=== PATIENT | female | born 2000 | race Caucasian/White ===

== ENCOUNTER → 2024-01-28 16:30 | Outpatient (REF) | payer BC, SELFPAY ==
--- NOTE | 2024-01-28 16:32 | PN.DIAED06 ---
Meal Plan - Gestational
- Breakfast
Gestational Diabetes Meal Plan Name: 1800 calories
Breakfast - Total Carbohydrate (grams): 30
Breakfast - Starch Carbohydrate: 1
Breakfast - Fruit Carbohydrate: 0
Breakfast - Milk Carbohydrate: 1
Breakfast - Nonstarchy Vegetables: Yes
Breakfast - Meat/Protein: 1
Breakfast - Fat: 2
- Morning Snack
Morning Snack - Total Carbohydrate (grams): 30
Morning Snack - Starch Carbohydrate: 1
Morning Snack - Fruit Carbohydrate: 0
Morning Snack - Milk Carbohydrate: 1
Morning Snack - Nonstarchy Vegetables: Yes
Morning Snack - Meat/Protein: 0.5
Morning Snack - Fat: 0
- Lunch
Lunch - Total Carbohydrate (grams): 45
Lunch - Starch Carbohydrate: 2
Lunch - Fruit Carbohydrate: 1
Lunch - Milk Carbohydrate: 0
Lunch - Nonstarchy Vegetables: Yes
Lunch - Meat/Protein: 2
Lunch - Fat: 1
- Afternoon Snack
Afternoon Snack - Total Carbohydrate (grams): 30
Afternoon Snack - Starch Carbohydrate: 1
Afternoon Snack - Fruit Carbohydrate: 1
Afternoon Snack - Milk Carbohydrate: 0
Afternoon Snack - Nonstarchy Vegetables: Yes
Afternoon Snack - Meat/Protein: 1
Afternoon Snack - Fat: 0
- Dinner
Dinner - Total Carbohydrate (grams): 45
Dinner - Starch Carbohydrate: 2
Dinner - Fruit Carbohydrate: 0
Dinner - Milk Carbohydrate: 1
Dinner - Nonstarchy Vegetables: Yes
Dinner - Meat/Protein: 2
Dinner - Fat: 2
- Evening Snack
Evening Snack - Total Carbohydrate (grams): 30
Evening Snack - Starch Carbohydrate: 1
Evening Snack - Fruit Carbohydrate: 0
Evening Snack - Milk Carbohydrate: 1
Evening Snack - Nonstarchy Vegetables: Yes
Evening Snack - Meat/Protein: 1
Evening Snack - Fat: 1
--- NOTE | 2024-01-28 16:34 | PN.DIAED02 ---
Referral
DSME Class Series Code: 024.41
Referred For: Gestational Diabetes Self-Management Training, Management of Diabetes During , Medical Nutrition Therapy, Self-Blood Glucose Monitoring
PHI Release Authorization Form Signed: Yes
Patient Problems:
Current Active Problems
Problem Status Onset
Diabetes mellitus, gestational ~01/23/24
Demographic
(1) Diabetes mellitus, gestational
Status: Acute Onset Date: ~01/23/24
Qualifiers:
Gestational diabetes mellitus control: diet-controlled Trimester: second trimester Qualified Code(s): O24.410 - Gestational diabetes mellitus in , diet controlled
Code(s): O24.419 - Gestational diabetes mellitus in , unspecified control
Patient's primary language-: [place]
Education: College degree
Occupation: Professional
Hours Worked/Week: > 40
Shift: Day
- Social
Primary Support Person: Self
Primary Care Takers: Self, Self & spouse
Living Arrangements: Self & spouse
Care Plan
- Education Needs
Patient Education Needs: Monitoring, Nutritional management, Preconception care//gestational diabetes management
- Plan of Care
Plan of Care:
Met with Ms. Matthew today, , here today for glucometer and nutritional instructions. Explained glucose metabolism in body and what occurs during to cause increase blood sugar. Discussed importance of keeping BS well controlled to
avoid complications to the baby during and after (macrosomia, hypoglycemia). Explained to Bonifacio that she is at increased risk of developing T2DM in the future. Provider her with Contour Next Ez glucometer, instructions given on proper testing
technique, testing sites and testing pattern given. She is aware to test FBS and 2 hr pp each meal. Expected results for FBS <95 mg/dl and 2 hr pp <120 mg/dl. She is aware if testing 1 hr pp, result should be <140 mg/dl. Log sheet provided for her
to record results, she will send to Cl[facility] at [facility] every Friday. Result today of 90 mg/dl 2 hrs after her lunch. Explained macronutrients and the effect each has on blood sugar. Provided with 1800 jorge luis GDM meal plan. She was educated on
how to read a nutritional fact label and look at total CHO in relation to serving size. No fruit or fruit juice until noontime. Provided with handout on snacks as well as 'Choose Your Foods' booklet. She has a good understanding of nutrition. She
was encouraged to keep a regular activity schedule and will reach out should she require insulin.
== END ==
LOC: DES 16:30
PROVIDERS: ATTENDING PHYSICIAN Obstetrics & Gynecology
DX: O24.419 Gestational diabetes mellitus in pregnancy, unspecified control (principal)
CPT/HCPCS: 99078

== ENCOUNTER → 2024-01-29 13:15 | Outpatient (REF) | payer BC, SELFPAY | LOC: PNTC 13:15 | PROVIDERS: ATTENDING PHYSICIAN Obstetrics & Gynecology | DX: O99.210 Obesity complicating pregnancy, unspecified trimester (principal); O35.5XX0 Maternal care for (suspected) damage to fetus by drugs, not applicable or unspecified | CPT/HCPCS: 76805 ==

== ENCOUNTER → 2024-02-09 16:30 | Outpatient (REF) | payer BC, SELFPAY ==
--- NOTE | 2024-02-09 15:44 | PN.DE.MGMTRT ---
Insulin Management
- -
Met with Carlie today [facility]C 04/04/24, for insulin instructions. Her fasting glucose levels have been 98 to 118mg/dl, and 92-135mg/dl 1-2 hrs after meals. Pt has been recommended to start Basal insulin Lantus 6 units @ HS per her Perinatologist
Oliver. Discussed action of long acting insulins as well as symptoms and treatment of hypoglycemia. She is aware to inject insulin in outer thigh, rotating sites and aware to store insulin pens that are not in use in the refrigerator. Instructions
with good return demonstration using the insulin pen were noted. Discussed importance of checking fasting blood sugar to know the effect of the basal insulin on her blood sugars overnight. She has been consistent with monitoring 2 hrs after each
meal. Stressed the importance of ongoing monitoring fasting/before breakfast and 2 hrs after each meal to know the effect of food on her blood sugars.
Pt verbalized understanding.
Diabetes History
- -
Type of Diabetes: Gestational
Pre-Admission Diabetes Regimen
Insulin Pump Settings
IP Diabetes Regimen
Patient Education
== END ==
LOC: DES 16:30
PROVIDERS: ATTENDING PHYSICIAN Obstetrics & Gynecology Maternal & Fetal Medicine
DX: O24.419 Gestational diabetes mellitus in pregnancy, unspecified control (principal)
CPT/HCPCS: 99078

== ENCOUNTER → 2024-02-23 08:46 | Outpatient (REF) | payer BC, SELFPAY | LOC: PNTC 08:46 | PROVIDERS: ATTENDING PHYSICIAN Obstetrics & Gynecology | DX: O99.210 Obesity complicating pregnancy, unspecified trimester (principal); O35.5XX0 Maternal care for (suspected) damage to fetus by drugs, not applicable or unspecified | CPT/HCPCS: 76811 ==

== ENCOUNTER → 2024-03-22 08:22 | Outpatient (REF) | payer BC, SELFPAY | LOC: PNTC 08:22 | PROVIDERS: ATTENDING PHYSICIAN Advanced Practice Midwife | DX: E10.9 Type 1 diabetes mellitus without complications (principal); O99.612 Diseases of the digestive system complicating pregnancy, second trimester | CPT/HCPCS: 76816 ==

== ENCOUNTER → 2024-04-20 13:17 | Outpatient (REF) | payer BC, SELFPAY | LOC: PNTC 13:17 | PROVIDERS: ATTENDING PHYSICIAN Advanced Practice Midwife | DX: O24.419 Gestational diabetes mellitus in pregnancy, unspecified control (principal); O99.612 Diseases of the digestive system complicating pregnancy, second trimester | CPT/HCPCS: 76816 ==

== ENCOUNTER → 2024-05-17 10:19 | Outpatient (REF) | payer BC, SELFPAY | LOC: PNTC 10:19 | PROVIDERS: ATTENDING PHYSICIAN Obstetrics & Gynecology | DX: O99.210 Obesity complicating pregnancy, unspecified trimester (principal); O99.280 Endocrine, nutritional and metabolic diseases complicating pregnancy, unspecified trimester | CPT/HCPCS: 59025; 76816 ==

== ENCOUNTER → 2024-05-31 10:19 | Outpatient (REF) | payer BC, SELFPAY | LOC: PNTC 10:19 | PROVIDERS: ATTENDING PHYSICIAN Obstetrics & Gynecology | DX: O99.210 Obesity complicating pregnancy, unspecified trimester (principal); O35.5XX0 Maternal care for (suspected) damage to fetus by drugs, not applicable or unspecified | CPT/HCPCS: 59025; 76815 ==

== ENCOUNTER → 2024-06-07 10:18 | Outpatient (REF) | payer BC, SELFPAY | LOC: PNTC 10:18 | PROVIDERS: ATTENDING PHYSICIAN Obstetrics & Gynecology | DX: O99.210 Obesity complicating pregnancy, unspecified trimester (principal); O99.320 Drug use complicating pregnancy, unspecified trimester | CPT/HCPCS: 59025; 76815 ==

== ENCOUNTER → 2024-06-14 10:17 | Outpatient (REF) | payer BC, SELFPAY | LOC: PNTC 10:17 | PROVIDERS: ATTENDING PHYSICIAN Obstetrics & Gynecology | DX: O99.210 Obesity complicating pregnancy, unspecified trimester (principal); O99.320 Drug use complicating pregnancy, unspecified trimester | CPT/HCPCS: 59025; 76816 ==

== ENCOUNTER → 2024-06-21 10:17 | Outpatient (REF) | payer BC, SELFPAY | LOC: PNTC 10:17 | PROVIDERS: ATTENDING PHYSICIAN Obstetrics & Gynecology | DX: O99.210 Obesity complicating pregnancy, unspecified trimester (principal); O35.5XX0 Maternal care for (suspected) damage to fetus by drugs, not applicable or unspecified | CPT/HCPCS: 59025; 76815 ==

== ENCOUNTER → 2024-06-24 07:23 | Outpatient (REF) | payer BC, SELFPAY | LOC: RAD 07:23 | PROVIDERS: ATTENDING PHYSICIAN Obstetrics & Gynecology; FAMILY PHYSICIAN Nurse Practitioner Adult Health | DX: R31.9 Hematuria, unspecified (principal) | CPT/HCPCS: 76770 ==

== ENCOUNTER → 2024-06-28 10:16 | Outpatient (REF) | payer BC, SELFPAY | LOC: PNTC 10:16 | PROVIDERS: ATTENDING PHYSICIAN Obstetrics & Gynecology | DX: O99.210 Obesity complicating pregnancy, unspecified trimester (principal); O99.320 Drug use complicating pregnancy, unspecified trimester | CPT/HCPCS: 59025; 76816 ==

== ENCOUNTER 2024-07-01 19:55 | Inpatient (IN) | payer BC, SELFPAY ==
[2024-07-01 20:48] VITALS: BMI 46.4
[2024-07-01 20:53] VITALS: BP 129/71
[2024-07-01 21:14] LABS: % Basophils 0.4 % (0-2); % Immature Granulocytes 0.3 % (0-0.5); % Lymphocytes 23.9 % (20.5-51.1); % Monocytes 10.1 % (1.7-9.3); % Neutrophils 64.3 % (42.2-75.2); Absolute Basophils 0.1 10^3/uL (0-0.2); Absolute Eosinophils 0.1 10^3/uL (0-0.7); Absolute Lymphocytes 3.2 10^3/uL (1.2-3.4); Absolute Monocytes 1.4 10^3/uL (0.1-0.6); Absolute Neutrophils 8.7 10^3/uL (1.4-6.5); Hemoglobin 11.1 g/dL (12.0-16.0); Mean Corp Hgb Conc. 34.7 g/dL (33.0-37.0); Mean Corpuscular Hgb 28.1 pg (27.0-31.0); Mean Platelet Volume 11.2 fL (7.4-10.4); Nucleated Red Blood Cells % 0 %; Platelet Count 233 10^3/uL (130-400); Red Blood Cell Count 3.95 10^6/uL (4.20-5.40); Red Cell Dist. Width 13.5 % (11.5-14.5); White Blood Cell Count 13.5 10^3/uL (4.8-10.8)
[2024-07-01 21:19] LABS: Glucose - Point of Care 99 mg/dl (70-99)
[2024-07-01] MEDS: CYTOTEC 25 MICROGRAM VAG (21:36)
[2024-07-02] MEDS: CYTOTEC 50 MICROGRAM PO ×3 (00:54→09:05)
[2024-07-02 01:01] LABS: Glucose - Point of Care 89 mg/dl (70-99)
[2024-07-02 05:01] LABS: Glucose - Point of Care 75 mg/dl (70-99)
[2024-07-02] MEDS: LUVOX 50 MG PO ×2 (08:07→21:56)
[2024-07-02 09:13] LABS: Glucose - Point of Care 101 mg/dl (70-99)
[2024-07-02] MEDS: PITOCIN 30 UNITS/NSS 500 ML IV (13:30)
[2024-07-02 13:42] LABS: Glucose - Point of Care 158 mg/dl (70-99)
[2024-07-02] MEDS: CYTOTEC PO ×2 (13:46→17:06)
[2024-07-02 17:08] LABS: Glucose - Point of Care 98 mg/dl (70-99)
[2024-07-02] MEDS: FENTANYL/BUPIVACAINE 100 EPIDURAL (19:27)
[2024-07-02] MEDS: SUBLIMAZE 100 MCG EPIDURAL (19:29)
[2024-07-02 21:37] LABS: Glucose - Point of Care 90 mg/dl (70-99)
[2024-07-02 23:34] LABS: Glucose - Point of Care 82 mg/dl (70-99)
[2024-07-03 02:18] LABS: Glucose - Point of Care 121 mg/dl (70-99)
[2024-07-03] MEDS: FENTANYL/BUPIVACAINE 100 EPIDURAL (02:31)
[2024-07-03 04:30] LABS: Glucose - Point of Care 112 mg/dl (70-99)
[2024-07-03 07:20] LABS: Glucose - Point of Care 112 mg/dl (70-99)
[2024-07-03] MEDS: BICITRA 30 ML PO (07:22)
[2024-07-03] MEDS: TYLENOL 1000 MG PO (07:22)
[2024-07-03] MEDS: CLEOCIN 50 IV (07:22)
[2024-07-03] MEDS: ZITHROMAX INFUSION 250 IV (07:38)
[2024-07-03] MEDS: GENTAMICIN 110 MG IV (07:46)
[2024-07-03 08:19] LABS: B.E. Cord ABG -5.5 mMOL/L; Cord ABG Comment CORD BLOOD; HCO3 Cord ABG 22.4 mmol/L; O2 Saturation % Cord ABG 43.3 %; PCO2 Cord ABG 51 mmHg; PO2 Cord ABG 23 mmHg; pH Cord ABG 7.25
[2024-07-03 09:05] VITALS: BP 129/71
[2024-07-03 09:18] LABS: Glucose - Point of Care 126 mg/dl (70-99)
[2024-07-03] MEDS: DILAUDID 0.5 MG IV ×2 (09:21→09:41)
[2024-07-03 09:30] VITALS: BP 133/76
[2024-07-03 09:45] VITALS: BP 125/67
[2024-07-03] MEDS: TORADOL 15 MG IV ×3 (10:24→22:06)
[2024-07-03] MEDS: PITOCIN 30 UNITS/NSS 500 ML IV (10:24)
[2024-07-03] MEDS: LUVOX 50 MG PO ×2 (13:36→22:06)
[2024-07-04] MEDS: TORADOL 15 MG IV ×3 (04:39→15:56)
[2024-07-04 06:07] LABS: Hematocrit 25.9 % (37.0-47.0); Hemoglobin 8.7 g/dL (12.0-16.0); Mean Corp Hgb Conc. 33.6 g/dL (33.0-37.0); Mean Corpuscular Volume 86.3 fL (81.0-99.0); Mean Platelet Volume 11.7 fL (7.4-10.4); Platelet Count 234 10^3/uL (130-400); White Blood Cell Count 24.5 10^3/uL (4.8-10.8)
[2024-07-04] MEDS: FEOSOL 325 MG PO ×2 (08:12→20:20)
[2024-07-04] MEDS: PRENATAL PLUS 1 TABLET PO (08:12)
[2024-07-04] MEDS: LUVOX 50 MG PO ×2 (08:12→20:20)
--- NOTE | 2024-07-04 09:02 | W.PN.ANS.POP ---
Anesthesia Post Operative
- Anesthesia Post Op Note
Vital Signs Stable-See Nursing Note: Yes
Airway Patent: Yes
Adequate Pain Control: Yes
Change in Mental Status: No
Current Postoperative Nausea & Vomiting: No
Anesthesia Complications: No
General Anesthetic Recall: No
Unplanned Admission: No
Post Op Hydration Adequate: Yes
[2024-07-04] MEDS: MOTRIN 600 MG PO (22:15)
[2024-07-04] MEDS: TYLENOL 650 MG PO (22:16)
[2024-07-05] MEDS: TYLENOL 650 MG PO ×3 (06:28→20:01)
[2024-07-05] MEDS: MOTRIN 600 MG PO ×3 (06:29→20:01)
[2024-07-05] MEDS: PRENATAL PLUS 1 TABLET PO (07:53)
[2024-07-05] MEDS: FEOSOL 325 MG PO ×2 (07:54→19:59)
[2024-07-05] MEDS: LUVOX 50 MG PO ×2 (07:54→19:59)
[2024-07-05] MEDS: SENOKOT-S 1 TABLET PO (08:00)
[2024-07-06] MEDS: MOTRIN 600 MG PO (01:55)
[2024-07-06] MEDS: TYLENOL 650 MG PO (01:55)
[2024-07-06] MEDS: SENOKOT-S 1 TABLET PO (08:00)
[2024-07-06] MEDS: FEOSOL 325 MG PO (08:00)
[2024-07-06] MEDS: LUVOX 50 MG PO (08:00)
[2024-07-06] MEDS: PRENATAL PLUS 1 TABLET PO (08:00)
[2024-07-06 13:58] LABS: Syphilis/T. pallidum Ab Reflex Negative (Negative)
== END 2024-07-06 11:17 | disposition home or self-care (01) | DRG 787 ==
LOC: LDRP 19:55
PROVIDERS: Obstetrics & Gynecology; ADMITTING PHYSICIAN Obstetrics & Gynecology
PROC: 3E0P7VZ Introduction of Hormone into Female Reproductive, Via Natural or Artificial Opening (ICD-10-PCS; 2024-07-01)
PROC: 3E033VJ Introduction of Other Hormone into Peripheral Vein, Percutaneous Approach (ICD-10-PCS; 2024-07-02)
PROC: 10H07YZ Insertion of Other Device into Products of Conception, Via Natural or Artificial Opening (ICD-10-PCS; 2024-07-02)
PROC: 10907ZC Drainage of Amniotic Fluid, Therapeutic from Products of Conception, Via Natural or Artificial Opening (ICD-10-PCS; 2024-07-02)
PROC: 6A550ZT Pheresis of Cord Blood Stem Cells, Single (ICD-10-PCS; 2024-07-03)
PROC: 10D00Z1 Extraction of Products of Conception, Low, Open Approach (ICD-10-PCS; 2024-07-03)
DX: O24.424 Gestational diabetes mellitus in childbirth, insulin controlled (principal); K50.90 Crohn's disease, unspecified, without complications; Z3A.39 39 weeks gestation of pregnancy; Z37.0 Single live birth; O62.1 Secondary uterine inertia; O99.62 Diseases of the digestive system complicating childbirth; O99.344 Other mental disorders complicating childbirth; F41.9 Anxiety disorder, unspecified; O90.81 Anemia of the puerperium; O67.8 Other intrapartum hemorrhage; D64.9 Anemia, unspecified; O71.81 Laceration of uterus, not elsewhere classified; O69.81X0 Labor and delivery complicated by cord around neck, without compression, not applicable or unspecified; F32.A Depression, unspecified; F42.9 Obsessive-compulsive disorder, unspecified; O99.214 Obesity complicating childbirth; E66.01 Morbid (severe) obesity due to excess calories; Z80.8 Family history of malignant neoplasm of other organs or systems; Z80.0 Family history of malignant neoplasm of digestive organs; Z88.1 Allergy status to other antibiotic agents; Z88.0 Allergy status to penicillin; Z88.7 Allergy status to serum and vaccine
CPT/HCPCS: 88307; 36415; 82803; 82962; 85025; 85027; 86780; 86850; 86900; 86901; 87086

== ENCOUNTER → 2024-09-13 07:25 | Outpatient (REF) | payer BC, SELFPAY | LOC: RAD 07:25 | PROVIDERS: ATTENDING PHYSICIAN Nurse Practitioner Adult Health | DX: K80.20 Calculus of gallbladder without cholecystitis without obstruction (principal) | CPT/HCPCS: 76700 ==

== ENCOUNTER → 2024-10-04 19:27 | Outpatient (REF) | payer BC, SELFPAY | LOC: MRI 19:27 | PROVIDERS: ATTENDING PHYSICIAN Nurse Practitioner Adult Health | DX: K76.9 Liver disease, unspecified (principal) | CPT/HCPCS: 74183; A9575 ==

== ENCOUNTER 2025-01-11 08:44 | Emergency (ER) | payer BC, SELFPAY ==
[2025-01-11 09:01] VITALS: BP 130/88
[2025-01-11 09:30] LABS: Urine Albumin Negative (Neg - Trace); Urine Bilirubin Negative (Negative); Urine Character Clear (Clear); Urine Color Yellow; Urine Glucose Negative (Negative); Urine Ketone Negative (Negative); Urine Leukocyte Negative (Negative); Urine Nitrite Negative (Negative); Urine Occult Blood Negative (Negative); Urine Urobilinogen Negative (Neg - 1+)
[2025-01-11 09:35] LABS: % Basophils 0.5 % (0-2); % Immature Granulocytes 0.7 % (0-0.5); % Lymphocytes 15.2 % (20.5-51.1); % Monocytes 6.9 % (1.7-9.3); % Neutrophils 75.7 % (42.2-75.2); Absolute Basophils 0.1 10^3/uL (0-0.2); Absolute Eosinophils 0.2 10^3/uL (0-0.7); Absolute Immature Granulocytes 0.2 10^3/uL (0-0.05); Absolute Lymphocytes 3.7 10^3/uL (1.2-3.4); Absolute Monocytes 1.7 10^3/uL (0.1-0.6); Absolute Neutrophils 18.4 10^3/uL (1.4-6.5); Hematocrit 42.1 % (37.0-47.0); Hemoglobin 14.4 g/dL (12.0-16.0); Mean Corp Hgb Conc. 34.2 g/dL (33.0-37.0); Mean Corpuscular Hgb 28.9 pg (27.0-31.0); Mean Corpuscular Volume 84.5 fL (81.0-99.0); Mean Platelet Volume 9.6 fL (7.4-10.4); Nucleated Red Blood Cells % 0 %; Platelet Count 291 10^3/uL (130-400); Red Blood Cell Count 4.98 10^6/uL (4.20-5.40); Red Cell Dist. Width 12.9 % (11.5-14.5); White Blood Cell Count 24.3 10^3/uL (4.8-10.8)
[2025-01-11 09:40] LABS: HCG, Serum Qualitative Screen Negative
[2025-01-11 09:44] LABS: ALT (SGPT) 38 U/L (0-35); AST (SGOT) 31 U/L (14-36); Albumin 4.6 g/dl (3.5-5.0); Alkaline Phosphatase 68 U/L (38-126); Blood Urea Nitrogen 19 mg/dl (7-17); Calcium 10.1 mg/dl (8.4-10.2); Carbon Dioxide 21 mmol/L (22-30); Chloride 105 mmol/L (98-107); Glucose 111 mg/dl (70-99); Lipase 174 U/L (23-300); Potassium 4.3 mmol/L (3.5-5.1); Sodium 137 mmol/L (135-145); Total Bilirubin 0.5 mg/dl (0.2-1.3); Total Protein 7.4 g/dl (6.3-8.2); eGFR > 60.00
--- NOTE | 2025-01-11 09:44 | ED.GENMED ---
History of Present Illness
<Shira Jean PA-C - Last Filed: 01/11/25 18:48>
General
Chief Complaint: Abdominal Pain
Source: patient
Exam Limitations: none
Time Seen by Provider: 01/11/25 09:33
History of Present Illness
History of Present Illness:
24yoF with a history of Crohn's disease (on Humira, in remission x 4 years) presenting with her father for evaluation of abdominal pain. Patient woke up around 3 AM with pain in her left upper quadrant. She went back to bed but woke up again at 5
AM with pain that radiated across her upper abdomen. The pain is described as a gnawing, pulling pain. Pain is worse with movement. She also reports chills but denies any fevers. She has a prior diagnosis of gallstones although she denies any
pain in her right upper quadrant. Symptoms do not feel like her prior Crohn's flares because she has no issues with bowel movements. She had a pork rice bowl for dinner last night. She denies any nausea, vomiting, diarrhea, constipation, urinary
symptoms. Previous abdominal surgeries include a section in June 2024.
Past History
<Shira Jean PA-C - Last Filed: 01/11/25 18:48>
Past History
ED Past Medical History: Other (Crohn's disease)
ED Past Surgical History: None
Social History
Tobacco: Non-smoker
Alcohol: None
Drug: None
Personal: Single
Living: with family
Phy Exam
<Shira Jean PA-C - Last Filed: 01/11/25 18:48>
General Physical Exam
General Presentation: well appearing and no apparent distress
General age: appears stated age
General Skin: warm and dry
General Habitus: normal
General Mental: alert
ENT Exam
ENT Exam: normocephalic
Cardiovascular Exam
Cardiovascular Exam: no murmur and tachycardia
Pulmonary Exam
Pulmonary Exam: lungs clear, no respiratory distress, no rales, no crackles and no rhonchi
Gastrointestinal Exam
Gastrointestinal Exam: soft, non distended and other (+Generalized abdominal tenderness, worse in the suprapubic and LLQ regions. Abdomen soft, non-distended. No rebound or guarding. Negative Jon's sign.)
Neurological Exam
Neurological Exam: alert
Roger Coma Scale
Eye Opening: Spontaneous
Verbal Response: Oriented
Motor Response: Obeys Commands
GCS Total Score: 15
Skin Exam
Skin Exam: normal color and warm/dry
Psychiatric Exam
Psychiatric Exam: normal mood/affect
<Ying Patton NP - Last Filed: 01/11/25 19:19>
Roger Coma Scale
GCS Total Score: 15
Course
<Shira Jean PA-C - Last Filed: 01/11/25 18:48>
Orders/Labs/Results
Orders:
Orders
01/11/25 09:06
Electrocardiogram (*1) Urgent
Reason for Study: Chest Pain
01/11/25 09:07
EKG- Treatment ONCE
Test Result ONCE
01/11/25 09:15
Complete Blood Count/With Diff Urgent
Comprehensive Metabolic Panel Urgent
HCG, Serum Qualitative Screen Urgent
Comment: Notify provider if positive test present
Lipase Urgent
01/11/25 09:17
Urinalysis Reflex To Culture Urgent
Date Specimen was Collected: 01/11/25
Time Specimen was Collected: 09:07
01/11/25 09:43
CT Abd/pelvis W Iv Cont Urgent
Comment:
Reason For Exam: L sided, periumbilical pain
0.9% Sodium Chloride 1000 ml [Nss] 1,000 ml IV BOLUS
Ketorolac [Toradol] 15 mg IV NOW STA
01/11/25 10:06
Ketorolac [Toradol] 15 mg IV NOW STA
01/11/25 10:07
Ketorolac [Toradol] 15 mg .ROUTE .STK-MED ONE
01/11/25 12:32
Iohexol [Omnipaque] See Protocol PO NOW STA
01/11/25 12:42
CT Abd/pel (oral only)-DH Only Urgent
Comment:
Reason For Exam: generalized abd pain
Iohexol [Omnipaque] See Protocol PO NOW STA
01/11/25 12:49
Ondansetron HCl [Zofran] 4 mg PO NOW STA
01/11/25 12:50
Ondansetron Injectable [Zofran] 4 mg .ROUTE .STK-MED ONE
Abnormal Lab Results
01/11/25
09:15
WBC 24.3 H 10^3/uL
(4.8-10.8)
Abs Immat Gran (auto) 0.2 H 10^3/uL
(0-0.05)
Absolute Neuts (auto) 18.4 H 10^3/uL
(1.4-6.5)
Absolute Lymphs (auto) 3.7 H 10^3/uL
(1.2-3.4)
Absolute Monos (auto) 1.7 H 10^3/uL
(0.1-0.6)
Immature Gran % 0.7 H %
(0-0.5)
Neutrophils % 75.7 H %
(42.2-75.2)
Lymphocytes % 15.2 L %
(20.5-51.1)
Carbon Dioxide 21 L mmol/L
(22-30)
BUN 19 H mg/dl
(7-17)
Glucose 111 H mg/dl
(70-99)
ALT 38 H U/L
(0-35)
01/11/25 09:15
01/11/25 09:15
Vital Signs
Initial and Last Documented VS:
Initial Vital Signs
Temp Pulse Resp BP Pulse Ox
99.9 F 130 20 130/88 98
01/11/25 09:01 01/11/25 09:01 01/11/25 09:01 01/11/25 09:01 01/11/25 09:01
Last Documented Vital Signs
Temp Pulse Resp BP Pulse Ox
98.1 F 104 20 155/105 96
01/11/25 17:35 01/11/25 19:04 01/11/25 10:12 01/11/25 19:04 01/11/25 19:04
<Ying Patton, SYNTHET[employer] ST[employer]LE EXTRUDER - Last Filed: 01/11/25 19:19>
Orders/Labs/Results
Orders:
Orders
01/11/25 09:06
Electrocardiogram (*1) Urgent
Reason for Study: Chest Pain
01/11/25 09:07
EKG- Treatment ONCE
Test Result ONCE
01/11/25 09:15
Complete Blood Count/With Diff Urgent
Comprehensive Metabolic Panel Urgent
HCG, Serum Qualitative Screen Urgent
Comment: Notify provider if positive test present
Lipase Urgent
01/11/25 09:17
Urinalysis Reflex To Culture Urgent
Date Specimen was Collected: 01/11/25
Time Specimen was Collected: 09:07
01/11/25 09:43
CT Abd/pelvis W Iv Cont Urgent
Comment:
Reason For Exam: L sided, periumbilical pain
0.9% Sodium Chloride 1000 ml [Nss] 1,000 ml IV BOLUS
Ketorolac [Toradol] 15 mg IV NOW STA
01/11/25 10:06
Ketorolac [Toradol] 15 mg IV NOW STA
01/11/25 10:07
Ketorolac [Toradol] 15 mg .ROUTE .STK-MED ONE
01/11/25 12:32
Iohexol [Omnipaque] See Protocol PO NOW STA
01/11/25 12:42
CT Abd/pel (oral only)-DH Only Urgent
Comment:
Reason For Exam: generalized abd pain
Iohexol [Omnipaque] See Protocol PO NOW STA
01/11/25 12:49
Ondansetron HCl [Zofran] 4 mg PO NOW STA
01/11/25 12:50
Ondansetron Injectable [Zofran] 4 mg .ROUTE .STK-MED ONE
Abnormal Lab Results
01/11/25
09:15
WBC 24.3 H 10^3/uL
(4.8-10.8)
Abs Immat Gran (auto) 0.2 H 10^3/uL
(0-0.05)
Absolute Neuts (auto) 18.4 H 10^3/uL
(1.4-6.5)
Absolute Lymphs (auto) 3.7 H 10^3/uL
(1.2-3.4)
Absolute Monos (auto) 1.7 H 10^3/uL
(0.1-0.6)
Immature Gran % 0.7 H %
(0-0.5)
Neutrophils % 75.7 H %
(42.2-75.2)
Lymphocytes % 15.2 L %
(20.5-51.1)
Carbon Dioxide 21 L mmol/L
(22-30)
BUN 19 H mg/dl
(7-17)
Glucose 111 H mg/dl
(70-99)
ALT 38 H U/L
(0-35)
01/11/25 09:15
01/11/25 09:15
Vital Signs
Initial and Last Documented VS:
Initial Vital Signs
Temp Pulse Resp BP Pulse Ox
99.9 F 130 20 130/88 98
01/11/25 09:01 01/11/25 09:01 01/11/25 09:01 01/11/25 09:01 01/11/25 09:01
Last Documented Vital Signs
Temp Pulse Resp BP Pulse Ox
98.1 F 104 20 155/105 96
01/11/25 17:35 01/11/25 19:04 01/11/25 10:12 01/11/25 19:04 01/11/25 19:04
Moiséslt;Shira Jean PA-C - Last Filed: 01/11/25 18:48>
MDM/Problems Addressed
Differential Diagnosis Includes:
24yoF here with abd pain. Woke up at 3am with LUQ pain. Pain now radiating to center abdomen. Feels like a pulling, gnawing pain. +Chills, denies fevers. Hx of Crohn's disease in remission. Temp 99.9 in triage. Repeat temp 98.4 on initial exam. HR
130. She is well appearing in no distress. Differential diagnosis includes but is not limited to: gastritis, PUD, pancreatitis, colitis, diverticulitis, cholecystitis
Initial ED plan: Check abdominal labs, HCG, UA, and CT abdomen. IV Toradol and fluid bolus for symptoms.
Final assessment: Labs reveal a leukocytosis with a white count of 24.3. White count was also 24 in June of last year when she was giving . Remainder of labs overall unremarkable. hCG negative. UA bland without signs of infection. CT
shows hepatomegaly with a 2.3 cm enhancing lesion which was also seen on prior MRI. No other acute findings seen on CT although evaluation for bowel pathology limited due to lack of enteric contrast. Appendix not definitively visualized.
Discussed findings with patient. We discussed options of obtaining repeat CT with p.o. contrast vs. discharging with watchful waiting and strict return precautions. Patient prefers to repeat CT scan which was ordered. Patient is feeling better
after Toradol on multiple reassessments. Case was signed out to Mariola Patton pending repeat CT.
<Ying Patton, SYNTHETIC ST[employer]LE EXTRUDER - Last Filed: 01/11/25 19:19>
MDM/Problems Addressed
Differential Diagnosis Includes:
24yoF here with abd pain. Woke up at 3am with LUQ pain. Pain now radiating to center abdomen. Feels like a pulling, gnawing pain. +Chills, denies fevers. Hx of Crohn's disease in remission. Temp 99.9 in triage. Repeat temp 98.4 on initial exam. HR
130. She is well appearing in no distress. Differential diagnosis includes but is not limited to: gastritis, PUD, pancreatitis, colitis, diverticulitis, cholecystitis
Initial ED plan: Check abdominal labs, HCG, UA, and CT abdomen. IV Toradol and fluid bolus for symptoms.
Final assessment: Labs reveal a leukocytosis with a white count of 24.3. White count was also 24 in June of last year when she was giving . Remainder of labs overall unremarkable. hCG negative. UA bland without signs of infection. CT
shows hepatomegaly with a 2.3 cm enhancing lesion which was also seen on prior MRI. No other acute findings seen on CT although evaluation for bowel pathology limited due to lack of enteric contrast. Appendix not definitively visualized.
Discussed findings with patient. We discussed options of obtaining repeat CT with p.o. contrast vs. discharging with watchful waiting and strict return precautions. Patient prefers to repeat CT scan which was ordered. Patient is feeling better
after Toradol on multiple reassessments. Case was signed out to Mariola Patton pending repeat CT.
6:20 [address]
#2 CT abd/pelvis with po and after IV only contrast CT radiology report read:
IMPRESSION: Moderate wall thickening involving the distal 10 cm of the ileum, compatible with ileitis. Given the clinical history, this is most likely Crohn's disease. Infectious ileitis is a differential consideration.
No evidence for bowel obstruction. No evidence for free intraperitoneal air.
Hepatomegaly with fatty infiltration liver.
2 cm lesion within the inferior right lobe of the liver, as seen on MRI of the abdomen of October 04, 2024. Follow-up MRI of the abdomen is advised with utilization of Eovist contrast agent (pt has been aware of this)
Recommended admission for GI evaluation. She does not want to stay as she has an infant at home
Pt states she is pain free. She is aware of her elevated WBC, reviewed CT results with her, she looks comfortable, is afebrile. VSS HR 94
She will call her GI doctor at [facility] tomorrow.
Provided stool sample container to take home, she will get order for stool cultures from her [facility] doctor
Strict return instructions reviewed
<Shira Jean PA-C - Last Filed: 01/11/25 18:48>
*EKG
Interpreted by ED Provider?: Yes
EKG Intrepretation Date: 01/11/25
Heart Rate: 110
Rate: tachycardiac
Rhythm: sinus
[place]: normal axis
Interval: normal interval
QRS Pattern: normal QRS
Ischemia: no ischemia
*Critical Care Note
Total Time (30-74mins, 75-104mins- exclusive of procedures): Not Applicable
ED Attending Note
<Shira Jean PA-C - Last Filed: 01/11/25 18:48>
-
Portions of this chart may have been created with voice recognition software.� Occasional wrong word or��sound alike� substitutions may have occurred due to the inherent limitations of voice recognition software.
Discharge Plan
Departure
Patient Disposition: Home (Routine Discharge)
Date of Disposition: 01/11/25
Time of Disposition: 18:38
Patient with high blood pressure during this ER visit?: No
Condition: Good
Discharge Problem:
Ileitis
Instructions: Inflammatory Bowel Disease (DC)
Prescriptions:
No Action
fluvoxamine 50 MG tablet
50 mg PO BID
Humira Pen 40 mg/0.8 mL Pen Injector Kit
40 mg SC WEEKLY
Vitamin
1 tab PO DAILY
acetaminophen 325 mg Tablet
650 mg PO Q4HPRN PRN (Reason: mild pain) Qty: 0 0RF
sennosides-docusate sodium 8.6-50 mg Tablet
1 tab PO DAILYPRN PRN (Reason: constipation) Qty: 0 0RF
ferrous sulfate [FeroSul] 325 mg (65 mg iron) Tablet
325 mg PO DAILY Qty: 30 0RF
ibuprofen 600 mg Tablet
600 mg PO Q6HPRN PRN (Reason: cramps) Qty: 60 0RF
Referrals:
[facility] [Other] - Tomorrow
Isabel Magana CRNP [Family Provider] -
Activity Restrictions/Additional Instructions:
As we discussed, the inflammation of your bowel may be infectious or inflammatory of Crohn's.
Collect a stool sample and notify your GI doctor at [facility] tomorrow of today's visit, ask if he wants to order a stool culture.
Clear liquid diet until further instructed by your GI doctor.
Drink plenty of fluids.
Return here immediately for worsening abdominal pain, fever above 100.5, vomiting more than once in one hour, bloody stools or feeling sicker in any way
Interventions
Interventions:
*Risk Screen - Suicide Last Done: 01/11/25 09:01
*General Assessment Last Done: 01/11/25 09:01
*Neglect/Abuse Screening Last Done: 01/11/25 09:01
ED- Fall Risk Assessment Last Done: 01/11/25 10:13
*ED COVID-19 Vaccine History Last Done: 01/11/25 19:04
*Nursing Disposition Last Done: 01/11/25 19:04
LS-Boykfh-Lgtfruvxin Assessment Last Done: 01/11/25 10:13
Discharge Date and Time
Print Language: BULGARIAN
[2025-01-11] MEDS: TORADOL 15 MG IV ×2 (09:45→10:11)
[2025-01-11 10:05] VITALS: BP 158/103
[2025-01-11] MEDS: NSS 1000 IV (10:10)
[2025-01-11 10:12] VITALS: BP 158/103
[2025-01-11] MEDS: OMNIPAQUE 50 ML PO (12:46)
[2025-01-11] MEDS: ZOFRAN 4 MG PO (12:52)
[2025-01-11 17:35] VITALS: BP 136/90
[2025-01-11 19:04] VITALS: BP 155/105
== END 2025-01-11 19:23 | disposition home or self-care (01) ==
LOC: EMR 08:44
PROVIDERS: EMERGENCY PHYSICIAN Emergency Medicine; FAMILY PHYSICIAN Nurse Practitioner Adult Health
DX: K52.9 Noninfective gastroenteritis and colitis, unspecified (principal)
CPT/HCPCS: 99285; 96374; 96361; 74176; 74177; 80053; 81003; 83690; 84703; 85025; 93005; Q9967